=== PATIENT | female | born 1970 | race Caucasian/White ===

== ENCOUNTER 2024-02-10 17:08 | Emergency (ER) | payer MEDICAID ==
[~2024-02-10] VITALS: Ht 160 cm; Wt 82.0 kg
[2024-02-10 17:25] VITALS: BP 146/87; PULSE 85; TEMP 97.8; O2SAT 97
[2024-02-10] MEDS ORDERED: AMOX-117 PO (17:55)
[2024-02-10] MEDS: bacitracin 15gm ointment TP ONE (17:58)
[2024-02-10] MEDS: amox tr/potassium clavulanate 875/125mg TAB PO ONE (17:58)
[2024-02-10] MEDS: TETanus/Pertussis (Acell)/Diphther VAC/PF (Tdap-Adult) 0.5ml syringe IMVAC ONE (17:59)
[2024-02-10 18:27] VITALS: RESP 18
== END 2024-02-10 18:28 | disposition home or self-care (01) ==
LOC: ER 17:09
DX: S62.337A Displaced fracture of neck of fifth metacarpal bone, left hand, initial encounter for closed fracture (principal); W54.0XXA Bitten by dog, initial encounter; Y93.89 Activity, other specified; Y92.89 Other specified places as the place of occurrence of the external cause; Y99.8 Other external cause status
CPT/HCPCS: 29125; 73130; 90471; 90715; 99283

== ENCOUNTER 2024-02-12 19:33 | Emergency (ER) | payer MEDICAID ==
[~2024-02-12] VITALS: Ht 160 cm; Wt 73.0 kg
[~2024-02-12 19:33] MED LIST: AMOX-117 PO
[2024-02-12 20:00] VITALS: BP 170/89; PULSE 86; RESP 16; TEMP 98; O2SAT 97
== END 2024-02-12 22:55 | disposition left against medical advice (07) ==
LOC: ER 19:33
DX: M79.642 Pain in left hand (principal); M79.605 Pain in left leg; Z53.21 Procedure and treatment not carried out due to patient leaving prior to being seen by health care provider

== ENCOUNTER 2024-02-13 21:34 | Emergency (ER) | payer MEDICAID ==
[~2024-02-13] VITALS: Ht 160 cm; Wt 84.1 kg
[2024-02-13 21:36] VITALS: TEMP 98.1
[2024-02-13 22:15] VITALS: BP 148/88; PULSE 84; RESP 18; O2SAT 98
== END 2024-02-13 23:11 | disposition left against medical advice (07) ==
LOC: ER 21:34
DX: S60.212A Contusion of left wrist, initial encounter (principal); F17.200 Nicotine dependence, unspecified, uncomplicated; F12.90 Cannabis use, unspecified, uncomplicated; Z79.2 Long term (current) use of antibiotics; Z90.49 Acquired absence of other specified parts of digestive tract; X58.XXXA Exposure to other specified factors, initial encounter; Y93.89 Activity, other specified; Y92.89 Other specified places as the place of occurrence of the external cause; Y99.8 Other external cause status
CPT/HCPCS: 29125; 73630; 99283